=== PATIENT | female | born 1965 | race Two or more races ===

== ENCOUNTER 2017-10-31 10:58 | Emergency (ER) | payer MEDICAID ==
[~2017-10-31] VITALS: Ht 165.1 cm; Wt 74.4 kg
[2017-10-31 11:04] VITALS: Ht 165.1 cm; Wt 74.4 kg
[2017-10-31 13:39] VITALS: BP 124/79
== END 2017-10-31 13:39 | disposition home or self-care (01) ==
LOC: ED 10:58
DX: B34.9 Viral infection, unspecified (principal)

== ENCOUNTER 2018-10-01 08:35 | Emergency (ER) | payer OTHER ==
[~2018-10-01] VITALS: Ht 165.1 cm; Wt 73.1 kg
[2018-10-01 10:51] VITALS: BP 120/69
== END 2018-10-01 10:51 | disposition home or self-care (01) ==
LOC: ED 08:35
DX: N10 Acute pyelonephritis (principal); K64.9 Unspecified hemorrhoids
CPT/HCPCS: J0696; J1885; J7030

== ENCOUNTER 2018-11-04 12:59 | Emergency (ER) | payer OTHER ==
[~2018-11-04] VITALS: Ht 165.1 cm; Wt 72.1 kg
[2018-11-04 15:32] VITALS: BP 144/96
== END 2018-11-04 15:32 | disposition home or self-care (01) ==
LOC: ED 12:59
DX: K64.4 Residual hemorrhoidal skin tags (principal); K64.8 Other hemorrhoids